=== PATIENT | female | born 1995 | race Caucasian/White ===

== ENCOUNTER 2016-07-02 17:45 | Emergency (ER) | payer BC ==
[~2016-07-02] VITALS: Ht 162.6 cm; Wt 64.0 kg
[~2016-07-02 17:45] MED LIST: ARIP5TAB6 PO; LORA-445 PO; SERT25TA PO
[2016-07-02] MEDS ORDERED: ONDA4TAB10 PO (18:10)
[2016-07-02] MEDS ORDERED: PROM25SU34 RC (18:10)
[2016-07-02] MEDS ORDERED: METOCLOPRAMIDE 5 MG/ML, 2ML ONE (18:23)
[2016-07-02] MEDS ORDERED: DIPHENHYDRAMINE 50 MG/ML, 1ML ONE (18:24)
[2016-07-02] MEDS ORDERED: SODIUM CHLORIDE FLUSH 10ML SYR IVF ONE (18:30)
[2016-07-02] MEDS ORDERED: SODIUM CHLORIDE 0.9% 1,000ML IVBOLUS ONE (18:30)
[2016-07-02] MEDS ORDERED: DIPHENHYDRAMINE 50 MG/ML, 1ML IVPush ONE (18:30)
[2016-07-02] MEDS ORDERED: METOCLOPRAMIDE 5 MG/ML, 2ML IVPush ONE (18:30)
[2016-07-02] MEDS ORDERED: MAALOX/HYOSCYAMINE/LIDOCAINE 45 ML BOTTLE ONE (18:51)
[2016-07-02 18:54] LABS: ASPARTATE AMINO TRANSFERASE 25 U/L (15-37); BLOOD UREA NITROGEN 13 mg/dL (7-18)
[2016-07-02] MEDS ORDERED: MAALOX/HYOSCYAMINE/LIDOCAINE 45 ML BOTTLE PO ONE (19:00)
[2016-07-02 19:11] LABS: PATH.CAST-FLAG NOT PRESENT; SPERM-FLAG NOT PRESENT; SRC-FLAG NOT PRESENT; XTAL-FLAG NOT PRESENT; YLC-FLAG NOT PRESENT
[2016-07-02] MEDS ORDERED: MORPHINE SULFATE 4 MG/ML, 1ML ONE (19:11)
[2016-07-02] MEDS ORDERED: MORPHINE SULFATE 4 MG/ML, 1ML IVPush ONE (19:30)
[2016-07-02 19:35] VITALS: BP 111/66
== END 2016-07-02 19:36 | disposition home or self-care (01) ==
LOC: ED 18:34
DX: R10.84 Generalized abdominal pain (principal); G43.A0 Cyclical vomiting, in migraine, not intractable; F12.10 Cannabis abuse, uncomplicated
CPT/HCPCS: 36415; 80053; 81001; 83690; 84703; 85025; 87086; 96361; 96374; 96375; 99284; J1200; J2765; J7030

== ENCOUNTER 2016-07-21 02:54 | Emergency (ER) | payer BC ==
[~2016-07-21] VITALS: Ht 162.6 cm; Wt 63.1 kg
[~2016-07-21 02:54] MED LIST changes: +ONDA4TAB10 PO; +PROM25SU34 RC
[2016-07-21] MEDS ORDERED: ONDANSETRON ODT 4 MG PO ONE (03:30)
[2016-07-21] MEDS ORDERED: ONDANSETRON ODT 4 MG ONE (03:34)
[2016-07-21] MEDS ORDERED: ALBUTEROL SULFATE 2.5 MG/3 ML ONE (03:35)
[2016-07-21 03:55] LABS: BLOOD UREA NITROGEN 10 mg/dL (7-18)
[2016-07-21] MEDS ORDERED: POTASSIUM CHLORIDE 10% 20 MEQ/15 ML UDC ONE (04:22)
[2016-07-21] MEDS ORDERED: POTASSIUM CHLORIDE 20 MEQ TAB.ER.PRT PO ONE (04:30)
[2016-07-21 04:34] VITALS: BP 114/62
== END 2016-07-21 04:37 | disposition home or self-care (01) ==
LOC: ED 04:33
DX: R07.2 Precordial pain (principal); R06.00 Dyspnea, unspecified; S29.012A Strain of muscle and tendon of back wall of thorax, initial encounter; X58.XXXA Exposure to other specified factors, initial encounter; Y93.89 Activity, other specified; Y99.8 Other external cause status; Y92.89 Other specified places as the place of occurrence of the external cause
CPT/HCPCS: 36415; 71010; 80048; 81003; 82040; 85025; 85379; 93005; 94640; 99285; Q0162

== ENCOUNTER 2017-02-07 16:08 | Emergency (ER) | payer BC ==
[~2017-02-07] VITALS: Ht 162.6 cm; Wt 62.6 kg
[~2017-02-07 16:08] MED LIST changes: +ARIP5TAB13 PO; -ARIP5TAB6 PO
[2017-02-07] MEDS ORDERED: SODIUM CHLORIDE 0.9% 1,000 ML IV ONE (16:49)
[2017-02-07] MEDS ORDERED: SODIUM CHLORIDE 0.9% 1,000ML IVBOLUS ONE (17:00)
[2017-02-07] MEDS ORDERED: FAMOTIDINE 20 MG/2 ML IVP ONE (17:00)
[2017-02-07] MEDS ORDERED: ONDANSETRON 2MG/ML, 2ML IVPush ONE (17:00)
[2017-02-07] MEDS ORDERED: FAMOTIDINE 20 MG/2 ML ONE (17:18)
[2017-02-07] MEDS ORDERED: ONDANSETRON 2MG/ML, 2ML ONE (17:18)
[2017-02-07 17:25] LABS: HEMATOCRIT 47.8 % (34.6-47.8); HEMOGLOBIN 16.3 g/dL (11.7-16.4); WHITE BLOOD COUNT 9.6 x10^3/uL (4.5-13.2)
[2017-02-07] MEDS ORDERED: MAALOX/HYOSCYAMINE/LIDOCAINE 45 ML BTL ONE (17:29)
[2017-02-07] MEDS ORDERED: MAALOX/HYOSCYAMINE/LIDOCAINE 45 ML BTL PO ONE (17:30)
[2017-02-07 17:32] LABS: ASPARTATE AMINO TRANSFERASE 30 U/L (15-37); BLOOD UREA NITROGEN 13 mg/dL (7-18)
[2017-02-07] MEDS ORDERED: PROMETHAZINE 25 MG/ML, 1ML IM ONE (19:00)
[2017-02-07] MEDS ORDERED: PROMETHAZINE 25 MG/ML, 1ML ONE (19:20)
[2017-02-07 19:29] VITALS: BP 129/76
== END 2017-02-07 19:41 | disposition home or self-care (01) ==
LOC: ED 19:10
DX: R11.2 Nausea with vomiting, unspecified (principal); F12.10 Cannabis abuse, uncomplicated; Z90.49 Acquired absence of other specified parts of digestive tract; Z90.89 Acquired absence of other organs
CPT/HCPCS: 36415; 80053; 81003; 83690; 84703; 85025; 96361; 96372; 96374; 96375; 99285; J2405; J2550; J7030; S0028

== ENCOUNTER 2018-12-31 17:14 | Emergency (ER) | payer BC ==
[~2018-12-31] VITALS: Ht 162.6 cm; Wt 68.8 kg
--- NOTE | 2018-12-31 17:33 | NUR ---
PT CALM, LYING IN GURNEY. STATES CHEST PAIN STARTED YESTERDAY MORNING AND INCREASED TODAY. PT REPORTS STERNAP CP PAIN AT 6/10 NOW. NO SOB OR DISTRESS NOTED AT THIS TIME. RV'WD POC WITH PT. CHART UP FOR ERP.
[2018-12-31] MEDS ORDERED: KETOROLAC 30 MG/1 ML ONE (17:57)
[2018-12-31] MEDS ORDERED: KETOROLAC 30 MG/1 ML IM ONE (18:00)
--- NOTE | 2018-12-31 18:03 | NUR ---
PT MEDICATED PER ORDERS. AMBULATED TO XR WITH [facility].
[2018-12-31 18:09] LABS: BASOPHILS # (AUTO) 0.01 x10^3/uL (0-0.1); BASOPHILS % (AUTO) 0 % (0-1); EOSINOPHILS # (AUTO) 0.05 x10^3/uL (0-0.4); EOSINOPHILS % (AUTO) 1 % (1-7); LYMPHOCYTES % (AUTO) 19 % (22-44); MD NO; MEAN CORPUSCULAR HEMOGLOBIN 33.1 pg (27.0-34.8); MEAN CORPUSCULAR HGB CONC 33.9 g/dL (32.4-35.8); MEAN CORPUSCULAR VOLUME 97.8 fL (80-100); MEAN PLATELET VOLUME 8.2 fL (7.4-10.4); MONOCYTES # (AUTO) 0.43 x10^3/uL (0.2-0.8); MONOCYTES % (AUTO) 5 % (2-9); NEUTROPHILS % (AUTO) 75 % (42-75); PLATELET COUNT 255 x10^3/uL (130-400); RED BLOOD COUNT 4.45 x10^6/uL (3.82-5.3); RED CELL DISTRIBUTION WIDTH 13.8 % (9.6-15.2)
[2018-12-31 18:18] LABS: ALBUMIN 4.2 g/dL (3.4-5.0); ANION GAP 6 mmol/L (5-15); CALCIUM 9.1 mg/dL (8.5-10.1); CHLORIDE 109 mmol/L (98-107); CREATININE 0.77 mg/dL (0.55-1.02)
--- NOTE | 2018-12-31 18:25 | NUR ---
PT STATES TORADOL WASN'T VERY EFFECTIVE, REPORTS MINOR CHEST PAIN, DENIES NEEDS AT THIS TIME. CHART UP FOR RECHECK.
[2018-12-31 19:00] VITALS: BP 108/57
--- NOTE | 2018-12-31 19:40 | NUR ---
D/C INSTRUCTIONS, MEDS & F/U APPT RV'WD WITH PT, SHE VERBALIZES UNDERSTANDING. RX GIVEN X1. INSTRUCTED PT TO RETURN TO ED FOR ANY WORSENING SYMPTOMS. PT AMBULATED OUT OF ED WITHOUT DIFFICULTY.
== END 2018-12-31 19:44 | disposition home or self-care (01) ==
LOC: ED 19:05
DX: R07.89 Other chest pain (principal); F41.1 Generalized anxiety disorder; F17.200 Nicotine dependence, unspecified, uncomplicated
CPT/HCPCS: 36415; 71046; 80048; 82040; 85025; 85379; 93005; 96372; 99284; J1885